=== PATIENT | female | born 1990 | race Caucasian/White ===

== ENCOUNTER 2019-02-24 06:41 | Emergency (ER) | payer BC, OTHER ==
[2019-02-24] MEDS: SOD CHLORIDE 0.9% 1,000 ML IV (07:01)
[2019-02-24] MEDS: LORAZEPAM 2 MG INJ IV (07:01)
== END 2019-02-24 09:48 | disposition home or self-care (01) ==
LOC: E/R 06:41
DX: T40.7X1A Poisoning by cannabis (derivatives), accidental (unintentional), initial encounter (principal)
CPT/HCPCS: 93005; 96361; 96374; 99284-25